=== PATIENT | male | born 1935 | race Caucasian/White ===

== ENCOUNTER 2017-02-01 11:50 | Inpatient (IN) | payer MEDICARE, OTHER ==
[2017-02-01] MEDS ORDERED: FUROSEMIDE 100 MG/10 ML VIAL. ×2 (12:04)
[2017-02-01] MEDS ORDERED: LIDOCAINE 2% 20 ML VIAL. ×2 (12:05)
[2017-02-01] MEDS ORDERED: IODIXANOL 320 MG/ML 100 ML VIAL. ×4 (12:06→13:14)
[2017-02-01] MEDS: FUROSEMIDE 40 MG/4 ML VIAL. IVP ×4 (12:18→19:53)
[2017-02-01] MEDS ORDERED: NITROGLYCERIN 200 MCG/2 ML SYRINGE FOR CATH/VASC LAB. ×4 (12:44→13:24)
[2017-02-01] MEDS ORDERED: VERAPAMIL 5 MG/2 ML VIAL. ×2 (12:44)
[2017-02-01] MEDS ORDERED: MIDAZOLAM HCL/PF 2 MG/2 ML VIAL. ×2 (12:44)
[2017-02-01] MEDS ORDERED: HEPARIN for IV BOLUS 10,000 UNIT/10 ML VIAL. ×2 (12:44)
[2017-02-01] MEDS ORDERED: fentaNYL PF VIAL 100 MCG/2 ML VIAL ×2 (12:44)
[2017-02-01] MEDS ORDERED: diphenhydrAMINE 50 MG/ML VIAL ×2 (12:52)
[2017-02-01] MEDS ORDERED: BIVALIRUDIN 250 MG VIAL. IV ×2 (12:59)
[2017-02-01] MEDS ORDERED: ZOLPIDEM 5 MG TABLET. PO ×2 (13:45)
[2017-02-01] MEDS ORDERED: MORPHINE SULFATE 2 MG/ML DISP.SYRIN. IV ×2 (13:45)
[2017-02-01] MEDS ORDERED: PROCHLORPERAZINE 10 MG/2 ML VIAL. IV ×2 (13:45)
[2017-02-01] MEDS ORDERED: VARDENAFIL HCL 20 MG PO ×2 (13:45)
[2017-02-01] MEDS ORDERED: BISACODYL 10 MG SUPP.RECT. PR ×2 (13:45)
[2017-02-01] MEDS ORDERED: ACETAMINOPHEN 325 MG TABLET. PO ×4 (13:45→14:15)
[2017-02-01] MEDS ORDERED: CALCIUM CARBONATE 500 MG TAB.CHEW PO ×2 (13:45)
[2017-02-01] MEDS ORDERED: PROCHLORPERAZINE 25 MG SUPP.RECT. PR ×2 (13:45)
[2017-02-01] MEDS ORDERED: MAGNESIUM HYDROXIDE 2,400 MG/30 ML ORAL.SUSP. PO ×2 (13:45)
[2017-02-01] MEDS ORDERED: ONDANSETRON PF 4 MG/2 ML VIAL. IV ×2 (13:45)
[2017-02-01] MEDS ORDERED: CLOPIDOGREL BISULFATE 75 MG TABLET ×2 (13:48)
[2017-02-01] MEDS ORDERED: ASPIRIN 325 MG TABLET ×2 (13:48)
[2017-02-01] MEDS: LIDOCAINE 2% 20 ML VIAL. IJ ×2 (14:00)
[2017-02-01] MEDS: BIVALIRUDIN 250 MG VIAL. IV ×2 (14:00)
[2017-02-01] MEDS: diphenhydrAMINE 50 MG/ML VIAL IVP ×2 (14:00)
[2017-02-01] MEDS: CLOPIDOGREL BISULFATE 75 MG TABLET PO ×2 (14:00)
[2017-02-01] MEDS: IODIXANOL 320 MG/ML 100 ML VIAL. IART ×2 (14:00)
[2017-02-01] MEDS: HEPARIN for IV BOLUS 10,000 UNIT/10 ML VIAL. IART ×2 (14:00)
[2017-02-01] MEDS: ASPIRIN 325 MG TABLET PO ×2 (14:00)
[2017-02-01] MEDS: NITROGLYCERIN 200 MCG/2 ML SYRINGE FOR CATH/VASC LAB. ICAR ×2 (14:00)
[2017-02-01] MEDS: NITROGLYCERIN 200 MCG/2 ML SYRINGE FOR CATH/VASC LAB. IART ×2 (14:00)
[2017-02-01] MEDS: VERAPAMIL 5 MG/2 ML VIAL. IART ×2 (14:00)
[2017-02-01] MEDS ORDERED: NITROGLYCERIN SUBLINGUAL 0.4 MG BOTTLE OF 25. SL ×2 (14:15)
[2017-02-01] MEDS ORDERED: metOLazone 2.5 MG TABLET PO ×2 (15:00)
[2017-02-01] MEDS ORDERED: ATENOLOL 50 MG TABLET. PO ×2 (15:00)
[2017-02-01] MEDS ORDERED: amLODIPine BESYLATE 5 MG TABLET PO ×2 (15:00)
[2017-02-01] MEDS ORDERED: PANTOPRAZOLE IV PUSH 40 MG VIAL. IVP ×2 (15:00)
[2017-02-01] MEDS: IV 1/2 NORMAL SALINE 1,000 ML IV ×2 (15:16)
[2017-02-01] MEDS: ACETYLCYSTEINE 20% ORAL SOLN 600 MG/3 ML SYRINGE. PO ×4 (15:35→19:59)
[2017-02-01] MEDS: predniSONE 1 MG TABLET PO ×2 (15:38)
[2017-02-01] MEDS: FENOFIBRATE,MICRONIZED 134 MG CAPSULE PO ×2 (15:38)
[2017-02-01] MEDS ORDERED: NON FORMULARY ITEM (Albuterol Sulfate (Ventolin Hfa Inhaler) 2 PUFF) INH ×2 (16:00)
[2017-02-01] MEDS: ALBUTEROL SULFATE 2.5 MG/3 ML NEBU. NEB ×6 (16:19→23:27)
[2017-02-01 16:31] LABS: HCO3 ABG 31 mmol/L (21-28); PCO2 ABG 54 mmHg (35-46); PH ABG 7.37 (7.35-7.45); PO2 ABG 61 mmHg (65-108); SAT O2 ABG 91 % (92-99)
[2017-02-01 16:44] LABS: FIO2 ABG 50
[2017-02-01] MEDS: BUDESONIDE 0.5 MG/2 ML NEBU. NEB ×2 (19:18)
[2017-02-01] MEDS: ATORVASTATIN CALCIUM 40 MG TABLET. PO ×2 (19:59)
[2017-02-01] MEDS ORDERED: DOCUSATE SODIUM 100 MG CAPSULE. PO ×2 (21:00)
[2017-02-01] MEDS ORDERED: DICLOFENAC SODIUM 25 MG TABLET.DR PO ×2 (21:00)
[2017-02-01] MEDS ORDERED: NON FORMULARY ITEM (Fluticasone Propionate (Flovent 100MCG Diskus) 1 PUFF) IH ×2 (21:00)
[2017-02-02] MEDS: ALBUTEROL SULFATE 2.5 MG/3 ML NEBU. NEB ×10 (02:50→19:52)
[2017-02-02] MEDS: IV 1/2 NORMAL SALINE 1,000 ML IV ×4 (02:59→16:39)
[2017-02-02 05:58] LABS: ADD MAN DIFF? NO
[2017-02-02 06:14] LABS: ALBUMIN 2.7 g/dL (3.4-5.0); ALBUMIN/GLOBULIN RATIO 0.7 (1.0-1.7); ALK PHOS 54 U/L (46-116); ALT (SGPT) 13 U/L (16-63); ANION GAP 6 (6-14); AST (SGOT) 21 U/L (15-37); BASO % 0 % (0-3); BLOOD UREA NITROGEN 33 mg/dL (8-26); BUN/CREATININE RATIO 16 (6-20); CALCIUM 8.6 mg/dL (8.5-10.1); CARBON DIOXIDE 36 mmol/L (21-32); CHLORIDE 98 mmol/L (98-107); CREATININE 2.1 mg/dL (0.7-1.3); EOS % 0 % (0-3); GFR 30.6; GLUCOSE 105 mg/dL (70-99); HEMATOCRIT 45.4 % (39.0-53.0); HEMOGLOBIN 14.8 g/dL (13.0-17.5); LYMPH # 0.7 x10^3/uL (1.0-4.8); LYMPH % 6 % (24-48); MEAN CORPUSCULAR HEMOGLOBIN 30 pg (25-35); MEAN CORPUSCULAR HGB CONC 33 g/dL (31-37); MEAN CORPUSCULAR VOLUME 93 fL (79-100); MONO % 12 % (0-9); NEUT % 82 % (31-73); PHOSPHORUS 3.2 mg/dL (2.6-4.7); PLATELET COUNT 195 x10^3/uL (140-400); POTASSIUM 3.6 mmol/L (3.5-5.1); RED BLOOD COUNT 4.86 x10^6/uL (4.30-5.70); SODIUM 140 mmol/L (136-145); TOTAL BILIRUBIN 0.6 mg/dL (0.2-1.0); TOTAL PROTEIN 6.5 g/dL (6.4-8.2); WHITE BLOOD COUNT 11.3 x10^3/uL (4.0-11.0)
[2017-02-02] MEDS: predniSONE 20 MG TABLET PO ×2 (07:50)
[2017-02-02] MEDS: FENOFIBRATE,MICRONIZED 134 MG CAPSULE PO ×2 (07:51)
[2017-02-02] MEDS: CLOPIDOGREL BISULFATE 75 MG TABLET PO ×2 (07:51)
[2017-02-02] MEDS: ASPIRIN ENTERIC COATED 81 MG TABLET.DR. PO ×2 (07:51)
[2017-02-02] MEDS: POTASSIUM CHLORIDE 20 MEQ TABLET.ER. PO ×2 (07:52)
[2017-02-02] MEDS: BUDESONIDE 0.5 MG/2 ML NEBU. NEB ×4 (08:28→19:52)
[2017-02-02] MEDS: ACETYLCYSTEINE 20% ORAL SOLN 600 MG/3 ML SYRINGE. PO ×4 (08:55→21:58)
[2017-02-02] MEDS ORDERED: LIDOCAINE (700MG/PATCH) PATCH. TP ×2 (09:00)
[2017-02-02] MEDS ORDERED: MELOXICAM 7.5 MG TABLET PO ×2 (09:00)
[2017-02-02] MEDS ORDERED: FENOFIBRATE NANOCRYSTALLIZED 145 MG PO ×2 (09:00)
[2017-02-02 10:22] LABS: MRSA BY PCR Negative (Negative)
[2017-02-02 12:16] LABS: CHOLESTEROL 128 mg/dL (0-200); HDLC 55 mg/dL (40-60); NON-HDL CHOLESTEROL 73 mg/dL (0-129); TRIGLYCERIDES 84 mg/dL (0-150)
[2017-02-02 12:17] LABS: CHOLESTEROL/HDL RATIO 2.3
[2017-02-02] MEDS: FUROSEMIDE 20 MG/2 ML VIAL. IVP ×2 (16:39)
[2017-02-02] MEDS: ATORVASTATIN CALCIUM 40 MG TABLET. PO ×2 (21:58)
[2017-02-03] MEDS: ALBUTEROL SULFATE 2.5 MG/3 ML NEBU. NEB ×14 (00:14→23:10)
[2017-02-03] MEDS: IV 1/2 NORMAL SALINE 1,000 ML IV ×2 (05:25)
[2017-02-03] MEDS: BUDESONIDE 0.5 MG/2 ML NEBU. NEB ×4 (07:23→20:46)
[2017-02-03] MEDS: ASPIRIN ENTERIC COATED 81 MG TABLET.DR. PO ×2 (10:48)
[2017-02-03] MEDS: POTASSIUM CHLORIDE 20 MEQ TABLET.ER. PO ×2 (10:48)
[2017-02-03] MEDS: FENOFIBRATE,MICRONIZED 134 MG CAPSULE PO ×2 (10:49)
[2017-02-03] MEDS: predniSONE 20 MG TABLET PO ×2 (10:49)
[2017-02-03] MEDS: CLOPIDOGREL BISULFATE 75 MG TABLET PO ×2 (10:49)
[2017-02-03] MEDS: BENZONATATE 100 MG CAPSULE. PO ×4 (13:50→20:56)
[2017-02-03] MEDS: methylPREDNISolone SOD SUCC PF 40 MG/ML VIAL. IV ×4 (13:50→20:57)
[2017-02-03] MEDS: guaiFENesin DM 200MG/20MG 10 ML SYRUP PO ×6 (13:50→20:56)
[2017-02-03] MEDS: FUROSEMIDE 100 MG/10 ML VIAL. IVP ×2 (13:51)
[2017-02-03] MEDS: ATORVASTATIN CALCIUM 40 MG TABLET. PO ×2 (20:57)
[2017-02-04] MEDS: ALBUTEROL SULFATE 2.5 MG/3 ML NEBU. NEB ×12 (03:58→23:25)
[2017-02-04] MEDS: methylPREDNISolone SOD SUCC PF 40 MG/ML VIAL. IV ×6 (05:27→21:04)
[2017-02-04 05:40] LABS: BASO % 0 % (0-3); EOS % 0 % (0-3); HEMATOCRIT 46.6 % (39.0-53.0); HEMOGLOBIN 15.5 g/dL (13.0-17.5); LYMPH # 0.3 x10^3/uL (1.0-4.8); LYMPH % 3 % (24-48); MEAN CORPUSCULAR HEMOGLOBIN 31 pg (25-35); MEAN CORPUSCULAR HGB CONC 33 g/dL (31-37); MEAN CORPUSCULAR VOLUME 93 fL (79-100); MONO % 5 % (0-9); NEUT % 92 % (31-73); PLATELET COUNT 198 x10^3/uL (140-400); RED BLOOD COUNT 5.04 x10^6/uL (4.30-5.70); RED CELL DISTRIBUTION WIDTH 15.1 % (11.5-14.5); WHITE BLOOD COUNT 12.2 x10^3/uL (4.0-11.0)
[2017-02-04 05:49] LABS: ADD MAN DIFF? YES
[2017-02-04 06:06] LABS: ANION GAP 5 (6-14); BLOOD UREA NITROGEN 38 mg/dL (8-26); CALCIUM 9.2 mg/dL (8.5-10.1); CARBON DIOXIDE 36 mmol/L (21-32); CHLORIDE 100 mmol/L (98-107); GFR 32.4; GLUCOSE 150 mg/dL (70-99); POTASSIUM 4.4 mmol/L (3.5-5.1); SODIUM 141 mmol/L (136-145)
[2017-02-04] MEDS: BUDESONIDE 0.5 MG/2 ML NEBU. NEB ×4 (07:04→19:35)
[2017-02-04] MEDS: guaiFENesin DM 200MG/20MG 10 ML SYRUP PO ×8 (08:28→21:03)
[2017-02-04] MEDS: BENZONATATE 100 MG CAPSULE. PO ×6 (08:29→21:03)
[2017-02-04] MEDS: POTASSIUM CHLORIDE 20 MEQ TABLET.ER. PO ×2 (08:30)
[2017-02-04] MEDS: CLOPIDOGREL BISULFATE 75 MG TABLET PO ×2 (08:30)
[2017-02-04] MEDS: FENOFIBRATE,MICRONIZED 134 MG CAPSULE PO ×2 (08:30)
[2017-02-04] MEDS: ASPIRIN ENTERIC COATED 81 MG TABLET.DR. PO ×2 (08:30)
[2017-02-04 09:39] LABS: PLT ESTIMATE ADEQUATE (ADEQUATE)
[2017-02-04] MEDS: TAMSULOSIN 0.4 MG CAP.ER.24H. PO ×4 (15:08→21:03)
[2017-02-04] MEDS: FUROSEMIDE 40 MG TABLET. PO ×2 (15:08)
[2017-02-04] MEDS: METOPROLOL SUCC 24HR ER 25 MG TAB.ER.24H. PO ×2 (15:09)
[2017-02-04] MEDS: methylPREDNISolone ACETATE 40 MG/ML VIAL. INJ ×2 (17:30)
[2017-02-04] MEDS: FUROSEMIDE 40 MG/4 ML VIAL. IVP ×2 (18:46)
[2017-02-04] MEDS: RIVAROXABAN 10 MG TABLET. PO ×2 (18:47)
[2017-02-04 19:03] LABS: BILIRUBIN,URINE NEGATIVE (NEG); GLUCOSE,URINE NEGATIVE (NEG); NITRITE,URINE NEGATIVE (NEG); PH,URINE 5.5; PROTEIN,URINE 30 mg/dL (NEG-TRACE)
[2017-02-04 19:11] LABS: BACTERIA,URINE 0 /HPF (0-FEW); RBC,URINE 20-40 /HPF (0-2); SQUAMOUS EPITHELIAL CELL,UR OCC /LPF
[2017-02-04 19:12] LABS: SPERM,URINE PRESENT /HPF
[2017-02-04] MEDS: diphenhydrAMINE HCL 25 MG CAPSULE PO ×2 (21:03)
[2017-02-04] MEDS: ATORVASTATIN CALCIUM 40 MG TABLET. PO ×2 (21:03)
[2017-02-05] MEDS: ALBUTEROL SULFATE 2.5 MG/3 ML NEBU. NEB ×12 (02:31→23:37)
[2017-02-05 05:16] LABS: ALBUMIN 2.6 g/dL (3.4-5.0); ANION GAP 5 (6-14); BLOOD UREA NITROGEN 47 mg/dL (8-26); CALCIUM 8.9 mg/dL (8.5-10.1); CARBON DIOXIDE 35 mmol/L (21-32); CHLORIDE 99 mmol/L (98-107); GFR 32.4; GLUCOSE 168 mg/dL (70-99); PHOSPHORUS 4.5 mg/dL (2.6-4.7); POTASSIUM 4.1 mmol/L (3.5-5.1); SODIUM 139 mmol/L (136-145)
[2017-02-05] MEDS: methylPREDNISolone SOD SUCC PF 40 MG/ML VIAL. IV ×6 (05:33→20:18)
[2017-02-05] MEDS: BUDESONIDE 0.5 MG/2 ML NEBU. NEB ×4 (07:51→19:08)
[2017-02-05] MEDS: POTASSIUM CHLORIDE 20 MEQ TABLET.ER. PO ×2 (09:08)
[2017-02-05] MEDS: FUROSEMIDE 40 MG TABLET. PO ×2 (09:08)
[2017-02-05] MEDS: ASPIRIN ENTERIC COATED 81 MG TABLET.DR. PO ×2 (09:09)
[2017-02-05] MEDS: BENZONATATE 100 MG CAPSULE. PO ×6 (09:09→20:17)
[2017-02-05] MEDS: FENOFIBRATE,MICRONIZED 134 MG CAPSULE PO ×2 (09:09)
[2017-02-05] MEDS: CLOPIDOGREL BISULFATE 75 MG TABLET PO ×2 (09:09)
[2017-02-05] MEDS: guaiFENesin DM 200MG/20MG 10 ML SYRUP PO ×8 (09:09→20:17)
[2017-02-05] MEDS: METOPROLOL SUCC 24HR ER 25 MG TAB.ER.24H. PO ×2 (09:10)
[2017-02-05] MEDS: BUPIVACAINE MPF 0.25% 10 ML VIAL. IJ ×2 (11:10)
[2017-02-05] MEDS: methylPREDNISolone ACETATE 40 MG/ML VIAL. INJ ×4 (11:10)
[2017-02-05] MEDS: FUROSEMIDE 20 MG/2 ML VIAL. IVP ×2 (11:15)
[2017-02-05] MEDS: ANTI-COAG MONITOR BY PHARMACY. MC ×2 (14:32)
[2017-02-05] MEDS: RIVAROXABAN 10 MG TABLET. PO ×2 (17:36)
[2017-02-05] MEDS ORDERED: OXYMETAZOLINE 0.05% NASAL SPRAY 30ML BOTTLE. NS ×2 (18:15)
[2017-02-05] MEDS: TAMSULOSIN 0.4 MG CAP.ER.24H. PO ×2 (20:17)
[2017-02-05] MEDS: ATORVASTATIN CALCIUM 40 MG TABLET. PO ×2 (20:17)
[2017-02-06] MEDS: ALBUTEROL SULFATE 2.5 MG/3 ML NEBU. NEB ×12 (02:55→23:23)
[2017-02-06] MEDS: methylPREDNISolone SOD SUCC PF 40 MG/ML VIAL. IV ×6 (05:38→20:40)
[2017-02-06 06:06] LABS: ALBUMIN 2.6 g/dL (3.4-5.0); ANION GAP 3 (6-14); BLOOD UREA NITROGEN 52 mg/dL (8-26); CALCIUM 9.1 mg/dL (8.5-10.1); CARBON DIOXIDE 37 mmol/L (21-32); CHLORIDE 99 mmol/L (98-107); CREATININE 2.1 mg/dL (0.7-1.3); GFR 30.6; GLUCOSE 166 mg/dL (70-99); PHOSPHORUS 3.7 mg/dL (2.6-4.7); POTASSIUM 4.3 mmol/L (3.5-5.1); SODIUM 139 mmol/L (136-145)
[2017-02-06] MEDS: BUDESONIDE 0.5 MG/2 ML NEBU. NEB ×4 (08:18→19:27)
[2017-02-06] MEDS: FUROSEMIDE 40 MG TABLET. PO ×2 (09:11)
[2017-02-06] MEDS: CLOPIDOGREL BISULFATE 75 MG TABLET PO ×2 (09:11)
[2017-02-06] MEDS: FENOFIBRATE,MICRONIZED 134 MG CAPSULE PO ×2 (09:12)
[2017-02-06] MEDS: BENZONATATE 100 MG CAPSULE. PO ×6 (09:12→20:39)
[2017-02-06] MEDS: METOPROLOL SUCC 24HR ER 25 MG TAB.ER.24H. PO ×2 (09:13)
[2017-02-06] MEDS: POTASSIUM CHLORIDE 20 MEQ TABLET.ER. PO ×2 (09:14)
[2017-02-06] MEDS: ASPIRIN ENTERIC COATED 81 MG TABLET.DR. PO ×2 (09:14)
[2017-02-06] MEDS: guaiFENesin DM 200MG/20MG 10 ML SYRUP PO ×8 (09:27→20:40)
[2017-02-06] MEDS: ANTI-COAG MONITOR BY PHARMACY. MC ×2 (13:58)
[2017-02-06] MEDS: RIVAROXABAN 10 MG TABLET. PO ×2 (18:41)
[2017-02-06] MEDS: diphenhydrAMINE HCL 25 MG CAPSULE PO ×2 (20:39)
[2017-02-06] MEDS: TAMSULOSIN 0.4 MG CAP.ER.24H. PO ×2 (20:39)
[2017-02-06] MEDS: ATORVASTATIN CALCIUM 40 MG TABLET. PO ×2 (20:39)
[2017-02-07] MEDS: ALBUTEROL SULFATE 2.5 MG/3 ML NEBU. NEB ×12 (04:52→23:09)
[2017-02-07 05:38] LABS: ALBUMIN 2.5 g/dL (3.4-5.0); ANION GAP 3 (6-14); BLOOD UREA NITROGEN 45 mg/dL (8-26); CALCIUM 8.5 mg/dL (8.5-10.1); CARBON DIOXIDE 36 mmol/L (21-32); CHLORIDE 101 mmol/L (98-107); CREATININE 1.8 mg/dL (0.7-1.3); GFR 36.6; GLUCOSE 134 mg/dL (70-99); PHOSPHORUS 4.6 mg/dL (2.6-4.7); POTASSIUM 4.2 mmol/L (3.5-5.1); SODIUM 140 mmol/L (136-145)
[2017-02-07 05:47] LABS: ANION GAP 6 (6-14); BLOOD UREA NITROGEN 47 mg/dL (8-26); CALCIUM 8.8 mg/dL (8.5-10.1); CARBON DIOXIDE 34 mmol/L (21-32); CHLORIDE 101 mmol/L (98-107); CREATININE 1.8 mg/dL (0.7-1.3); GFR 36.6; GLUCOSE 131 mg/dL (70-99); POTASSIUM 4.5 mmol/L (3.5-5.1); SODIUM 141 mmol/L (136-145)
[2017-02-07] MEDS: methylPREDNISolone SOD SUCC PF 40 MG/ML VIAL. IV ×6 (05:52→20:46)
[2017-02-07] MEDS: BUDESONIDE 0.5 MG/2 ML NEBU. NEB ×4 (08:02→19:34)
[2017-02-07] MEDS: guaiFENesin DM 200MG/20MG 10 ML SYRUP PO ×8 (08:39→20:46)
[2017-02-07] MEDS: CLOPIDOGREL BISULFATE 75 MG TABLET PO ×2 (08:39)
[2017-02-07] MEDS: FENOFIBRATE,MICRONIZED 134 MG CAPSULE PO ×2 (08:39)
[2017-02-07] MEDS: POTASSIUM CHLORIDE 20 MEQ TABLET.ER. PO ×2 (08:40)
[2017-02-07] MEDS: BENZONATATE 100 MG CAPSULE. PO ×6 (08:40→20:46)
[2017-02-07] MEDS: FUROSEMIDE 40 MG TABLET. PO ×2 (08:40)
[2017-02-07] MEDS: ASPIRIN ENTERIC COATED 81 MG TABLET.DR. PO ×2 (08:40)
[2017-02-07] MEDS: METOPROLOL SUCC 24HR ER 25 MG TAB.ER.24H. PO ×2 (08:41)
[2017-02-07] MEDS: ANTI-COAG MONITOR BY PHARMACY. MC ×2 (10:03)
[2017-02-07] MEDS: RIVAROXABAN 10 MG TABLET. PO ×2 (17:36)
[2017-02-07] MEDS: ATORVASTATIN CALCIUM 40 MG TABLET. PO ×2 (20:46)
[2017-02-07] MEDS: diphenhydrAMINE HCL 25 MG CAPSULE PO ×2 (20:46)
[2017-02-07] MEDS: TAMSULOSIN 0.4 MG CAP.ER.24H. PO ×2 (20:52)
[2017-02-08] MEDS: ALBUTEROL SULFATE 2.5 MG/3 ML NEBU. NEB ×12 (03:13→23:15)
[2017-02-08 05:20] LABS: ALBUMIN 2.6 g/dL (3.4-5.0); ANION GAP 3 (6-14); BLOOD UREA NITROGEN 45 mg/dL (8-26); CALCIUM 8.8 mg/dL (8.5-10.1); CARBON DIOXIDE 36 mmol/L (21-32); CHLORIDE 99 mmol/L (98-107); CREATININE 1.8 mg/dL (0.7-1.3); GFR 36.6; GLUCOSE 146 mg/dL (70-99); PHOSPHORUS 4.7 mg/dL (2.6-4.7); POTASSIUM 4.2 mmol/L (3.5-5.1); SODIUM 138 mmol/L (136-145)
[2017-02-08] MEDS: methylPREDNISolone SOD SUCC PF 40 MG/ML VIAL. IV ×6 (05:57→20:16)
[2017-02-08] MEDS: BUDESONIDE 0.5 MG/2 ML NEBU. NEB ×4 (07:56→18:22)
[2017-02-08] MEDS: ASPIRIN ENTERIC COATED 81 MG TABLET.DR. PO ×2 (09:04)
[2017-02-08] MEDS: CLOPIDOGREL BISULFATE 75 MG TABLET PO ×2 (09:04)
[2017-02-08] MEDS: POTASSIUM CHLORIDE 20 MEQ TABLET.ER. PO ×2 (09:05)
[2017-02-08] MEDS: FENOFIBRATE,MICRONIZED 134 MG CAPSULE PO ×2 (09:05)
[2017-02-08] MEDS: guaiFENesin DM 200MG/20MG 10 ML SYRUP PO ×8 (09:05→20:16)
[2017-02-08] MEDS: FUROSEMIDE 40 MG TABLET. PO ×2 (09:05)
[2017-02-08] MEDS: BENZONATATE 100 MG CAPSULE. PO ×6 (09:06→20:16)
[2017-02-08] MEDS: METOPROLOL SUCC 24HR ER 25 MG TAB.ER.24H. PO ×2 (09:06)
[2017-02-08] MEDS: ANTI-COAG MONITOR BY PHARMACY. MC ×2 (14:28)
[2017-02-08] MEDS: RIVAROXABAN 10 MG TABLET. PO ×2 (16:53)
[2017-02-08] MEDS: ATORVASTATIN CALCIUM 40 MG TABLET. PO ×2 (20:16)
[2017-02-08] MEDS: TAMSULOSIN 0.4 MG CAP.ER.24H. PO ×2 (20:23)
[2017-02-09] MEDS: ALBUTEROL SULFATE 2.5 MG/3 ML NEBU. NEB ×6 (03:10→12:09)
[2017-02-09 04:57] LABS: ALBUMIN 2.6 g/dL (3.4-5.0); ANION GAP 5 (6-14); BLOOD UREA NITROGEN 48 mg/dL (8-26); CALCIUM 8.5 mg/dL (8.5-10.1); CARBON DIOXIDE 34 mmol/L (21-32); CHLORIDE 99 mmol/L (98-107); CREATININE 1.9 mg/dL (0.7-1.3); GFR 34.4; GLUCOSE 144 mg/dL (70-99); PHOSPHORUS 4.8 mg/dL (2.6-4.7); POTASSIUM 4.4 mmol/L (3.5-5.1); SODIUM 138 mmol/L (136-145)
[2017-02-09] MEDS: methylPREDNISolone SOD SUCC PF 40 MG/ML VIAL. IV ×4 (06:05→13:49)
[2017-02-09] MEDS: BUDESONIDE 0.5 MG/2 ML NEBU. NEB ×2 (08:20)
[2017-02-09] MEDS: POTASSIUM CHLORIDE 20 MEQ TABLET.ER. PO ×2 (08:41)
[2017-02-09] MEDS: FENOFIBRATE,MICRONIZED 134 MG CAPSULE PO ×2 (08:41)
[2017-02-09] MEDS: FUROSEMIDE 40 MG TABLET. PO ×2 (08:41)
[2017-02-09] MEDS: ASPIRIN ENTERIC COATED 81 MG TABLET.DR. PO ×2 (08:41)
[2017-02-09] MEDS: CLOPIDOGREL BISULFATE 75 MG TABLET PO ×2 (08:42)
[2017-02-09] MEDS: BENZONATATE 100 MG CAPSULE. PO ×4 (08:42→13:49)
[2017-02-09] MEDS: guaiFENesin DM 200MG/20MG 10 ML SYRUP PO ×4 (08:43→13:49)
[2017-02-09] MEDS: METOPROLOL SUCC 24HR ER 25 MG TAB.ER.24H. PO ×2 (08:43)
[2017-02-09] MEDS: ANTI-COAG MONITOR BY PHARMACY. MC ×2 (12:58)
== END 2017-02-09 17:44 | DRG 246 ==
LOC: 2 SOUTH 02-02 17:30 → 1 WEST ICU 11:50
PROVIDERS: Internal Medicine
PROC: 027136Z Dilation of Coronary Artery, Two Arteries with Three Drug-eluting Intraluminal Devices, Percutaneous Approach (ICD-10-PCS; principal; 2017-02-01)
PROC: 4A023N7 Measurement of Cardiac Sampling and Pressure, Left Heart, Percutaneous Approach (ICD-10-PCS; 2017-02-01)
PROC: B2111ZZ Fluoroscopy of Multiple Coronary Arteries using Low Osmolar Contrast (ICD-10-PCS; 2017-02-01)
PROC: 5A09357 Assistance with Respiratory Ventilation, Less than 24 Consecutive Hours, Continuous Positive Airway Pressure (ICD-10-PCS; 2017-02-01)
PROC: B2151ZZ Fluoroscopy of Left Heart using Low Osmolar Contrast (ICD-10-PCS; 2017-02-01)
PROC: 5A09357 Assistance with Respiratory Ventilation, Less than 24 Consecutive Hours, Continuous Positive Airway Pressure (ICD-10-PCS; 2017-02-02)
PROC: 5A09357 Assistance with Respiratory Ventilation, Less than 24 Consecutive Hours, Continuous Positive Airway Pressure (ICD-10-PCS; 2017-02-03)
PROC: 5A09357 Assistance with Respiratory Ventilation, Less than 24 Consecutive Hours, Continuous Positive Airway Pressure (ICD-10-PCS; 2017-02-04)
PROC: 5A09357 Assistance with Respiratory Ventilation, Less than 24 Consecutive Hours, Continuous Positive Airway Pressure (ICD-10-PCS; 2017-02-05)
PROC: 5A09357 Assistance with Respiratory Ventilation, Less than 24 Consecutive Hours, Continuous Positive Airway Pressure (ICD-10-PCS; 2017-02-06)
PROC: 5A09357 Assistance with Respiratory Ventilation, Less than 24 Consecutive Hours, Continuous Positive Airway Pressure (ICD-10-PCS; 2017-02-07)
PROC: 5A09357 Assistance with Respiratory Ventilation, Less than 24 Consecutive Hours, Continuous Positive Airway Pressure (ICD-10-PCS; 2017-02-08)
DX: I21.4 Non-ST elevation (NSTEMI) myocardial infarction (principal); J96.21 Acute and chronic respiratory failure with hypoxia; I26.99 Other pulmonary embolism without acute cor pulmonale; I50.33 Acute on chronic diastolic (congestive) heart failure; I13.0 Hypertensive heart and chronic kidney disease with heart failure and stage 1 through stage 4 chronic kidney disease, or unspecified chronic kidney disease; J44.1 Chronic obstructive pulmonary disease with (acute) exacerbation; N17.9 Acute kidney failure, unspecified; N18.3 Chronic kidney disease, stage 3 (moderate); E66.9 Obesity, unspecified; E78.5 Hyperlipidemia, unspecified; F17.201 Nicotine dependence, unspecified, in remission; G62.9 Polyneuropathy, unspecified; I25.10 Atherosclerotic heart disease of native coronary artery without angina pectoris; I25.2 Old myocardial infarction; I27.29 Other secondary pulmonary hypertension; I27.81 Cor pulmonale (chronic); M17.0 Bilateral primary osteoarthritis of knee; M47.26 Other spondylosis with radiculopathy, lumbar region; N40.1 Benign prostatic hyperplasia with lower urinary tract symptoms; R33.8 Other retention of urine; Z53.20 Procedure and treatment not carried out because of patient's decision for unspecified reasons; Z68.32 Body mass index [BMI] 32.0-32.9, adult; Z79.01 Long term (current) use of anticoagulants; Z82.49 Family history of ischemic heart disease and other diseases of the circulatory system; Z86.711 Personal history of pulmonary embolism; Z95.5 Presence of coronary angioplasty implant and graft; Z99.81 Dependence on supplemental oxygen
CPT/HCPCS: 36415; 36600; 71010; 72148; 73565; 73721; 76770; 80048; 80053; 80061; 80069; 81001; 82805; 83735; 84100; 84550; 85007; 85025; 87086; 87641; 92928; 93454; 94640; 94660; 94760; 97110-GP; 97163-GP; 97166-GO; 97530-GP; 97535-GO; C1713; C1725; C1769; C1887; C1892; J0583; J1030; J1200; J1644; J1940; J2920; J3490; J7512; J7613; J7626; Q0163